=== PATIENT | male | born 1990 | race Caucasian/White ===

== ENCOUNTER 2017-05-13 16:50 | Emergency (ER) | payer OTHER ==
[~2017-05-13] VITALS: Ht 180.3 cm; Wt 99.8 kg
[~2017-05-13 16:50] MED LIST: MUPIROCIN15 GM TOP
[2017-05-13 16:52] VITALS: BP 146/100
[2017-05-13] MEDS ORDERED: PENICILLIN VK500 M1 PO (16:59)
[2017-05-13] MEDS ORDERED: MOBIC7.5 MG PO (16:59)
== END 2017-05-13 17:22 | disposition home or self-care (01) ==
LOC: ER 16:50
DX: K05.10 Chronic gingivitis, plaque induced (principal); Z88.8 Allergy status to other drugs, medicaments and biological substances

== ENCOUNTER 2020-12-14 00:47 | Emergency (ER) | payer OTHER ==
[~2020-12-14] VITALS: Ht 182.9 cm; Wt 127.0 kg
[~2020-12-14 00:47] MED LIST changes: +MOBIC7.5 MG PO; +PENICILLIN VK500 M1 PO
[2020-12-14 00:52] VITALS: BP 152/90
== END 2020-12-14 02:00 | disposition home or self-care (01) ==
LOC: ER 00:47
DX: Z74.1 Need for assistance with personal care (principal); F90.9 Attention-deficit hyperactivity disorder, unspecified type; F31.9 Bipolar disorder, unspecified; F84.5 Asperger's syndrome; Z91.09 Other allergy status, other than to drugs and biological substances

== ENCOUNTER 2021-04-08 21:47 | Emergency (ER) | payer OTHER ==
[~2021-04-08] VITALS: Ht 185.4 cm; Wt 125.2 kg
--- NOTE | ~2021-04-08 | EMS ---
[facility] [address] [place] [address] EMS Patient Care Report Name: JESSEE MCGRATH Room #: DEP BLADIMIR Selby#: [id number] Admission: 04/08/21 Attend Phys: Discharge: 04/09/21 Date of : [birth year] Report #: [id number] THIS REPORT FOR: //name// Report Transmitted: 04/09/2021 12:22 EMS Care Summary [place], [place]/[facility] Incident [id number] @ 04/08/2021 21:01 Incident Location [address] [place] [address] Patient JESSEE MCGRATH Male, 30 Years 1990 Patient Address [address] [place], [place] [id number] Patient History Autistic Disorder,Attention Deficit Hyperactivity Disorder (ADHD),Bipolar II Disorder,Schizophrenia, Patient Allergies No known allergies, Patient Medications Abilify, Chief Complaint SI Disposition Transported No Lights/[place] Dispatch Reason Sick Person Transported To [facility] Narrative patient is found walking around the scene. police state that the patient had run away from his retirement. earlier tonight. patient was found by the dog day care attendant of the facility at the scene. staff states that the patient had made [facility] [address] [place] [address] EMS Patient Care Report Name: JESSEE MCGRATH Room #: DEP ER MandiRiccardo#: [id number] Admission: 04/08/21 Attend Phys: Discharge: 04/09/21 Date of : [birth year] Report #: [id number] commets that he was homicidal and suicidal. Initial Vitals @:24P: 112,R: 14,BP: 156/98,Pain: 0/10,GCS: 15,Revised Trauma: 12, Assessments @21:22MENTAL:No Abnormalities,SKIN:No Abnormalities,HEENT:Head/Face: No Abnormalities,Eyes: No Abnormalities,Neck/Airway: No Abnormalities,LUNG SOUNDS:General: No Abnormalities,Left Upper: No Abnormalities,Right Upper: No Abnormalities,Left Lower: No Abnormalities,Right Lower: No Abnormalities,ABDOMEN:General: No Abnormalities,Left Upper: No Abnormalities,Right Upper: No Abnormalities,Left Lower: No Abnormalities,Right Lower: No Abnormalities,PELVIS//GI:No Abnormalities,EXTREMITIES:Left Arm: No Abnormalities,Right Arm: No Abnormalities,Left Leg: No Abnormalities,Right Leg: No Abnormalities,PULSE:NEURO:No Abnormalities, Impression Behavioral/psychiatric episode Procedures @21:22 ALS Assessment Response: UnchangedSucceeded @:23 Stretcher Response: Unchanged Timeline 21:00,Call Received 21:00,Dispatch Notified 21:01,Dispatched 21:03,En Route 21:21,On Scene 21:22,At Patient 21:22,ALS Assessment,Response: UnchangedSucceeded, 21:23,Stretcher,Response: Unchanged 21:24,BP: 156/98 M,PULSE: 112,RR: 14 R,SPO2: Ox,ETCO2: ,BG: ,PAIN: 0,GCS: 15, 21:30,Depart Scene 22:01,At Destination 22:14,Call Closed Disclaimer v1.[address] Copyright [address] [employer] This EMS Care Summary contains data elements from the applicable legal record (which may be displayed differently). It is designed to provide pertinent information for the following purposes: continuity of care, clinical quality, and state data reporting. The complete legal record is available to ED staff and administrators of the receiving hospital in [employer]'s Patient Tracker. All data is provided "as is."
[2021-04-08 22:39] LABS: HEMATOCRIT 40.3 % (42.0-52.0); MCH 26.7 pg (26.0-34.0); MCHC 32.3 g/dL (28.0-37.0); MCV 82.7 fL (80.0-100.0); PLATELET COUNT 357 thou/uL (150-400); RBC 4.87 mil/uL (4.50-6.00); RDW 15.6 % (10.5-14.5); WBC 14.7 thou/uL (4.0-11.0)
[2021-04-08 22:45] LABS: ANION GAP 12 mmol/L (7-16); BUN 14 mg/dL (7-18); CALCIUM 8.6 mg/dL (8.5-10.1); CHLORIDE 104 mmol/L (98-107); CO2 25 mmol/L (21-32); CREATININE 1.1 mg/dL (0.7-1.3); GLUCOSE 151 mg/dL (74-106); POTASSIUM 3.6 mmol/L (3.5-5.1); SALICYLATE < 2.8 mg/dL (2.8-20.0); SODIUM 141 mmol/L (136-145)
[2021-04-09 00:14] LABS: AMP/METHAMP Negative (Negative); BARBITURATES Negative (Negative); BENZODIAZEPINES Negative (Negative); COCAINE Negative (Negative); METHADONE Negative (Negative); OPIATES Negative (Negative); PCP Negative (Negative)
[2021-04-09 09:06] VITALS: BP 164/86
== END 2021-04-09 09:07 | disposition home or self-care (01) ==
LOC: ER 21:47
PROVIDERS: Student in an Organized Health Care Education/Training Program
DX: R45.851 Suicidal ideations (principal); Z20.822 Contact with and (suspected) exposure to COVID-19; F31.9 Bipolar disorder, unspecified; Z79.1 Long term (current) use of non-steroidal anti-inflammatories (NSAID); Z79.899 Other long term (current) drug therapy; Z88.8 Allergy status to other drugs, medicaments and biological substances